=== PATIENT | female | born 1990 | race American Indian/Alaskan Native ===

== ENCOUNTER 2018-06-23 18:49 | Emergency (ER) | payer OTHER, SELFPAY ==
[2018-06-23 18:57] VITALS: BP 118/70; PULSE 95; RESP 16; TEMP 36.7; O2SAT 99
[2018-06-23 19:50] VITALS: BP 118/70; PULSE 99; RESP 18; TEMP 36.8; O2SAT 95
[2018-06-23] MEDS: AMOXICILLIN 250 MG CAPSULE 500 MG PO (19:50)
[2018-06-23 20:01] VITALS: BP 122/76; PULSE 99; RESP 18; TEMP 36.8; O2SAT 95
--- NOTE | 2018-06-24 01:04 | ED_ITS ---
HPI - URI/Sore Throat General Chief Complaint: Upper Respiratory Symptoms Stated Complaint: SORE THROAT FEVER Time Seen by Provider: 06/23/18 19:04 Source: patient and family Mode of arrival: ambulatory Limitations: no limitations History of Present Illness HPI Narrative: 28-year-old female, otherwise healthy, nonsmoker presents with a chief complaint of a sore throat for the past few days. She denies runny nose or cough. She denies any chest pain or shortness of breath. She denies nausea, vomiting or diarrhea. She presents with her young child with similar symptoms. There are multiple other family members who have recently been diagnosed with strep throat. MD Complaint: fever Onset (ago): hour(s) Duration: constant Severity: moderate Relieving factors: nothing Exacerbating factors: nothing Description of mucous: clear Able to tolerate fluids by mouth: Yes Context: sick contacts Associated symptoms: fever Related Data Home Medications Medication Instructions Recorded Confirmed cetirizine 10 mg PO DAILY PRN 06/23/18 06/23/18 Previous Rx's Medication Instructions Recorded amoxicillin 500 mg PO BID 10 Days #20 cap 06/23/18 Allergies Allergy/AdvReac Type Severity Reaction Status Date / Time No Known Drug Allergies Allergy Verified 06/23/18 19:01 Review of Systems Review of Systems All systems reviewed & are unremarkable except as noted in HPI and below Constitutional Denies chills, Denies fever(s), Denies lethargy and Denies weakness Eyes Denies change in vision, Denies eye discharge, Denies irritation and Denies loss of vision ENT Ears, Nose, Mouth, and Throat: Denies change in voice, Denies neck pain and Reports sore throat Cardiovascular Denies chest pain, Denies irregular heart rhythm, Denies lightheadedness, Denies palpitations, Denies dyspnea, Denies dyspnea on exertion and Denies orthopnea Respiratory Denies cough, Denies dyspnea, Denies dyspnea on exertion and Denies wheezing Gastrointestinal Gastrointestinal: Denies abdominal pain, Denies change in bowel habits, Denies diarrhea, Denies nausea and Denies vomiting Genitourinary Denies hematuria, Denies flank pain, Denies urinary incontinence and Denies urinary urgency Musculoskeletal Denies neck pain Integumentary/Breasts Denies pruritus, Denies erythema, Denies rash and Denies wounds Neurologic Denies confusion, Denies loss of vision and Denies weakness Psychiatric Denies anxiety, Denies confusion, Denies depression, Denies homicidal ideation and Denies suicidal ideation Endocrine Denies palpitations Hematologic/Lymphatic Denies easy bruising Allergic/Immunologic Denies wheezing Exam Narrative Exam Narrative: GEN: AOx3 and in mild distress EYES: Pupils are equal, round, and reactive to light and accommodation. Extraoccular muscles are intact bilaterally. There is no subconjunctival hemorrhage or exudate. ENT: mild pharyngeal erythema, no tonsillar swelling or exudate. No anterior lymphadenopathy. CHEST: Lungs are clear to auscultation bilaterally and free of wheezes, rales, or rhonchi. Heart rate is regular rhythm, there are no murmurs, clicks, rubs, or gallops. There is no chest wall tenderness. ABD: Abdomen is soft and nontender. There is no guarding or rebound. Bowel sounds are normal in all 4 quadrants. There is no mass or organomegaly. EXT: Full painless ROM of all extremities with no loss of sensation or strength. SKIN: Warm, pink, and dry. No erythema or rash Initial Vital Signs Initial Vital Signs: Vital Signs Temperature 98.0 F 06/23/18 18:57 Pulse Rate 95 H 06/23/18 18:57 Respiratory Rate 16 06/23/18 18:57 Blood Pressure 118/70 06/23/18 18:57 Pulse Oximetry 99 06/23/18 18:57 Course Orders Ordered: Discontinued Medications Amoxicillin (Trimox) 500 mg PO NOW ONE Stop: 06/23/18 19:38 Last Admin: 06/23/18 19:50 Dose: 500 mg Vital Signs - 8 hr 06/23/18 18:57 06/23/18 19:50 06/23/18 20:01 Temperature 98.0 F 98.2 F 98.2 F Pulse Rate 95 H 99 H 99 H Respiratory Rate 16 18 18 Blood Pressure 118/70 118/70 Blood Pressure [Right Arm] 122/76 Pulse Oximetry 99 95 95 MDM - URI/Sore Throat Lab Data Point of Care Testing Rapid Strep A Positive Discharge Plan Departure Patient Disposition: Home Clinical Impression: Strep pharyngitis Discharge Date/Time: 06/23/18 20:12 Interventions: ED Discharge Assessment Last Done: 06/23/18 20:12 Instructions: DI for Strep Throat Activity Restrictions/Additional Instructions: *You have been diagnosed with [ acute streptococcal pharyngitis ] *What to do: *Take medications as directed *Follow up with your primary care provider in 2-3 days, call for an appointment. Let them know you were seen in the Emergency Department and that we ask that you be seen in follow up *Return to ER if you should have any new, worsening or concerning symptoms , such as [ worsening fever, trouble taking your medicine, or other bothersome symptoms] Prescriptions: New amoxicillin 500 mg capsule 500 mg PO BID 10 Days Qty: 20 RF: 0 No Action cetirizine 10 mg Tablet 10 mg PO DAILY PRN (Reason: Allergic Symptoms) RF: 0 Stand Alone Forms: Work/School Restrictions
== END 2018-06-23 20:12 | disposition home or self-care (01) ==
PROVIDERS: Emergency Provider Emergency Medicine
DX: J02.0 Streptococcal pharyngitis (principal)
CPT/HCPCS: 87880; 99282; 99283

== ENCOUNTER → 2018-07-11 16:13 | Outpatient (CLI) | payer OTHER, SELFPAY | PROVIDERS: Visit Provider Physician Assistant | DX: J02.9 Acute pharyngitis, unspecified (principal) | CPT/HCPCS: 87070; 87077; 87147 ==

== ENCOUNTER 2018-08-15 09:03 | Emergency (ER) | payer OTHER, SELFPAY ==
[2018-08-15 09:06] VITALS: BP 132/90; PULSE 96; RESP 18; O2SAT 100
--- NOTE | 2018-08-15 10:16 | ED_ITS ---
HPI - URI/Sore Throat General Chief Complaint: Upper Respiratory Symptoms Stated Complaint: STREP Time Seen by Provider: 08/15/18 10:05 Source: patient and old records reviewed Mode of arrival: ambulatory Limitations: no limitations History of Present Illness HPI Narrative: Patient is a 28-year-old female who presents with sore throat ongoing for the last 3 days. She had strep once in June and again in July. She feels like this is similar. Her right ear hurt briefly but no longer hurts. She has had low-grade temperature 100?. No cough. Complaint: sore throat Onset (ago): day(s) Duration: constant Related Data Home Medications Medication Instructions Recorded Confirmed cetirizine 10 mg PO DAILY PRN 06/23/18 08/15/18 Allergies Allergy/AdvReac Type Severity Reaction Status Date / Time No Known Drug Allergies Allergy Verified 06/23/18 19:01 Review of Systems Review of Systems ROS Unobtainable: All systems reviewed & are unremarkable except as noted in HPI and below Constitutional Denies chills, Reports fever(s) and Denies malaise ENT Ears, Nose, Mouth, and Throat: Reports as per HPI Cardiovascular Denies chest pain, Denies irregular heart rhythm, Denies lightheadedness, Denies palpitations, Denies dyspnea, Denies dyspnea on exertion and Denies orthopnea Respiratory Denies cough, Denies dyspnea, Denies dyspnea on exertion and Denies wheezing Gastrointestinal Gastrointestinal: Denies abdominal pain, Denies change in bowel habits, Denies diarrhea, Denies nausea and Denies vomiting Genitourinary Denies hematuria, Denies flank pain, Denies urinary incontinence and Denies urinary urgency Musculoskeletal Denies back pain, Denies muscle weakness, Denies numbness and Denies tingling Integumentary/Breasts Denies pruritus, Denies erythema, Denies rash and Denies wounds Neurologic Denies numbness and Denies tingling Endocrine Denies palpitations Allergic/Immunologic Denies wheezing [facility] Medical History Patient denies medical problems (Acute) Social History Smoking Status: Never smoker Exam Initial Vital Signs Initial Vital Signs: Vital Signs Pulse Rate 96 H 08/15/18 09:06 Respiratory Rate 18 08/15/18 09:06 Blood Pressure 132/90 08/15/18 09:06 Pulse Oximetry 100 01/11/19 09:06 GENERAL: Well-appearing, well-nourished and in no acute distress. HEENT: Head atraumatic,EOMI, pupils reactive, neck is supple no meningeal signs PHARYNX: No erythema, no tonsillar exudate, no cervical lymphadenopathy CARDIOVASCULAR: Regular rate and rhythm without murmurs, rubs or gallops. RESPIRATORY: Breath sounds equal bilaterally, no wheezes rales or rhonchi. ABDOMEN: Soft, nontender. Normoactive bowel sounds all 4 quadrants. No guarding or rebound. EXTREMITIES: Normal range of motion, no clubbing or edema. Neurovascularly intact NEUROLOGICAL: Alert and oriented x4.Normal gait and speech. Cranial nerves II through XII grossly intact. SKIN: Warm, dry, no laceration, no petechiae, no rashes or lesions. Course Vital Signs - 8 hr 08/15/18 09:06 Pulse Rate 96 H Respiratory Rate 18 Blood Pressure 132/90 Pulse Oximetry 100 MDM - URI/Sore Throat Lab Data Attestation: I reviewed the patient's lab results. Point of Care Testing Rapid Strep A Negative [facility] Narrative Medical decision making narrative: Patient's strep is negative. Pharynx is nonerythematous no exudate. At this time likely virus. Discharge Plan Departure Patient Disposition: Home Clinical Impression: Pharyngitis Discharge Date/Time: 08/15/18 10:25 Interventions: ED Discharge Assessment Last Done: 08/15/18 10:25 Instructions: DI for Viral Pharyngitis Activity Restrictions/Additional Instructions: *You have been diagnosed with viral pharyngitis *What to do: At this time no antibiotics are required strep test is negative. *Continue to take medications as directed *Follow up with your primary care provider in 2-3 days *Return to ER if you should have difficulty swallowing, increasing pain, change in voice or any new, worsening or concerning symptoms Prescriptions: No Action cetirizine 10 mg Tablet 10 mg PO DAILY PRN (Reason: Allergic Symptoms) RF: 0
== END 2018-08-15 10:25 | disposition home or self-care (01) ==
PROVIDERS: Emergency Provider Emergency Medicine
DX: J02.9 Acute pharyngitis, unspecified (principal)
CPT/HCPCS: 87880; 99282

== ENCOUNTER → 2019-09-11 16:48 | Outpatient (CLI) | payer OTHER, SELFPAY | PROVIDERS: Visit Provider Physician Assistant | DX: J02.9 Acute pharyngitis, unspecified (principal) | CPT/HCPCS: 87070; 87077; 87147 ==

== ENCOUNTER → 2019-09-25 16:08 | Outpatient (CLI) | payer OTHER, SELFPAY | PROVIDERS: Visit Provider Physician Assistant | DX: L08.9 Local infection of the skin and subcutaneous tissue, unspecified (principal); T14.8XXA Other injury of unspecified body region, initial encounter | CPT/HCPCS: 87070; 87075; 87077; 87147; 87186; 87205 ==

== ENCOUNTER → 2021-10-30 17:50 | Outpatient (CLI) | payer OTHER, SELFPAY | PROVIDERS: Visit Provider Student in an Organized Health Care Education/Training Program | DX: J02.9 Acute pharyngitis, unspecified (principal) | CPT/HCPCS: 87070; 87077; 87147 ==

== ENCOUNTER 2025-06-03 01:25 | Emergency (ER) | payer OTHER, SELFPAY ==
[2025-06-03] VITALS (7 sets, daily range): BP systolic 135–150; BP diastolic 60–69; PULSE 85–98; RESP 18; TEMP 36.9; O2SAT 98–100; BMI 32.9
[2025-06-03] MEDS: ONDANSETRON 4 MG/2 ML INJ IV (01:57)
[2025-06-03 02:06] LABS: Culture Indicated Urine Cult Not Indicated
[2025-06-03 02:10] LABS: Add Manual Diff / Slide Review NO; Hematocrit 31.4 % (36-46); Hemoglobin 10.2 g/dL (12.0-16.0); Lymphocytes Absolute Auto 2300 /uL (1100-4500); Mean Corpuscular HGB Conc 32.3 % (30-36); Mean Corpuscular Hemoglobin 21.9 PG (26-34); Mean Corpuscular Volume 67.9 fL (80-100); Platelet Count 354 X10^3/uL (150-400)
[2025-06-03 02:17] LABS: Alanine Aminotransferase 16 IU/L (<35); Albumin 4.1 g/dL (3.5-5.0); Albumin Globulin Ratio 1.3 (1.0-2.8); Alkaline Phosphatase 80 U/L (38-126); Blood Urea Nitrogen 11 mg/dL (7-17); Calcium 8.9 mg/dL (8.4-10.2); Carbon Dioxide 27 mmol/L (22-32); Chloride 107 mmol/L (98-107); Estimated Glomerular Filt Rate > 60 mL/min (>60); Globulin 3.2 g/dL (1.7-4.1); Glucose 94 mg/dL (70-99); HEMOLYSIS < 15 (0-50); Lipase 85 U/L (23-300); Potassium 3.7 mmol/L (3.4-5.1); Sodium 139 mmol/L (137-145); Total Protein 7.3 g/dL (6.3-8.2)
[2025-06-03 02:20] LABS: Anisocytosis 2+
[2025-06-03 02:21] LABS: Hypochromasia 1+; Microcytosis 2+
--- NOTE | 2025-06-03 02:47 | ED.ABDPAIN ---
HPI - Abdominal Pain General Chief Complaint: Abdominal Pain Stated Complaint: LRQ Pain, N, headache Time Seen by Provider: 06/03/25 02:07 Source: patient Mode of arrival: Ambulatory History of Present Illness HPI narrative: 35-year-old female who started with right upper quadrant pain after eating some pizza before arrival. She has not had any abdominal surgeries in the past. She denies any other or GI symptoms. No fever no chills or other generalized symptoms. Related Data Home Medications ?Medication ?Instructions ?Recorded ?Confirmed cetirizine 10 mg tablet 10 mg PO DAILY PRN Allergic 06/23/18 09/25/19 Symptoms Previous Rx's ?Medication ?Instructions ?Recorded mupirocin 2 % topical ointment 1 applic topical TID #30 grams 09/25/19 sulfamethoxazole 800 1 tab PO BID #14 tabs 09/27/19 mg-trimethoprim 160 mg tablet (Bactrim DS) dexamethasone 4 mg tablet 10 mg (2.5 x 4 mg) PO ONCE #2.5 11/02/21 (Decadron) tabs Allergies Allergy/AdvReac Type Severity Reaction Status Date / Time No Known Drug Allergies Allergy Verified 06/03/25 01:49 Review of Systems Review of Systems ROS Unobtainable: All systems reviewed & are unremarkable except as noted in HPI and below Patient History Medical History (Updated 06/03/25 @ 04:09 by Karson Alvarez MD) Wound infection Patient denies medical problems Social History Smoking Status: Never smoker Smoking Status: Never smoker alcohol intake frequency: 0-2 drinks per day Exam Narrative Exam Narrative: General: Patient appears to be in no acute distress, acting appropriately Head: normocephalic, atraumatic, HEENT: Pupils equal round reactive, eyes tracking well, neck supple, no JVD Heart: regular rate and rhythm, no murmurs, rubs, or gallops heard Lungs: clear to auscultation, no adventitious sounds Abdomen: soft , mildly tender to palpation right upper quadrant area, Castillo sign negative, nondistended, positive bowel sounds Neurological: no focal neurological signs, moving all extremities well, alert and oriented x3, Psych: good judgment ,good insight, mood is normal. Initial Vital Signs Initial Vital Signs: Vital Signs Temperature 98.5 F 06/03/25 01:48 Pulse Rate 91 H 06/03/25 01:48 Respiratory Rate 18 06/03/25 01:48 Blood Pressure 150/69 H 06/03/25 01:48 Pulse Oximetry 100 06/03/25 01:48 Oxygen Delivery Method Room Air 06/03/25 01:48 Course Orders Ordered: ED Orders 06/03/25 01:50 Urine Microscopic Stat 06/03/25 01:55 Complete Blood Count AUTO DIFF Stat Comprehensive Metabolic Panel Stat Lipase Stat 06/03/25 02:48 CT abdomen pelvis w con Stat Ondansetron HCl (Ondansetron 4 Mg/2 Ml Inj) 4 mg IV NOW PRN PRN Reason: Nausea And Vomiting Last Admin: 06/03/25 01:57 Dose: 4 mg Documented By: JORGE Ondansetron HCl (Ondansetron 4 Mg Odt) 4 mg PO NOW PRN PRN Reason: Nausea And Vomiting Reevaluation(s) Reevaluation #1: Upon re-evaluation, patient's pain has subsided. Vital Signs Vital signs: Vital Signs - 8 hr 06/03/25 01:48 06/03/25 02:09 06/03/25 02:30 Temperature 98.5 F Pulse Rate 91 H 98 H 86 Respiratory Rate 18 Blood Pressure 150/69 H Pulse Oximetry 100 100 99 Oxygen Delivery Method Room Air 06/03/25 03:00 06/03/25 03:30 06/03/25 04:00 Temperature Pulse Rate 86 86 85 Respiratory Rate Blood Pressure Pulse Oximetry 99 99 98 Oxygen Delivery Method 06/03/25 04:20 06/03/25 04:20 Temperature Pulse Rate 89 Respiratory Rate Blood Pressure 135/60 Pulse Oximetry 98 Oxygen Delivery Method MDM - Abdominal Pain Lab Data 06/03/25 01:55 06/03/25 01:55 Labs: Lab Results 06/03/25 06/03/25 Range/Units 01:50 01:55 WBC 7.9 (4.5-11.0) X10^3/uL RBC 4.63 (4.0-5.2) X10^6/uL Hgb 10.2 L (12.0-16.0) g/dL Hct 31.4 L (36-46) % MCV 67.9 L (80-100) fL MCH 21.9 L (26-34) PG MCHC 32.3 (30-36) % RDW 17.2 H (11.6-14.8) % Plt Count 354 (150-400) X10^3/uL Neut % (Auto) 60.4 (50-75) % Lymph % (Auto) 28.7 (25-40) % [place] % (Auto) 8.1 (3-14) % Eos % (Auto) 1.9 L (2-4) % Baso % (Auto) 0.9 (0-2) % Neut # (Auto) 4700 (1000-0748) /uL Lymph # (Auto) 2300 (7069-9602) /uL [place] # (Auto) 600 (0-900) /uL Eos # (Auto) 200 (0-450) /uL Baso # (Auto) 100 (0-100) /uL Platelet Estimate Adequate on smear RBC Morphology See below Hypochromasia 1+ H Anisocytosis 2+ H Microcytosis 2+ H Sodium 139 (137-145) mmol/L Potassium 3.7 (3.4-5.1) mmol/L Chloride 107 (98-107) mmol/L Carbon Dioxide 27 (22-32) mmol/L BUN 11 (7-17) mg/dL Creatinine 0.69 (0.52-1.04) mg/dL Estimated GFR > 60 (>60) mL/min BUN/Creatinine Ratio 15.9 (6-22) Glucose 94 (70-99) mg/dL Calcium 8.9 (8.4-10.2) mg/dL Total Bilirubin 0.3 (0.2-1.3) mg/dL AST 22 (14-36) IU/L ALT 16 (<35) IU/L Alkaline Phosphatase 80 (38-126) U/L Total Protein 7.3 (6.3-8.2) g/dL Albumin 4.1 (3.5-5.0) g/dL Globulin 3.2 (1.7-4.1) g/dL Albumin/Globulin Ratio 1.3 (1.0-2.8) Lipase 85 (23-300) U/L Urine RBC 0-1/hpf (0-5/HPF) Urine WBC 1-5/hpf (0-5/HPF) Ur Squamous Epith Cells 5-10 /hpf H (0-5/HPF) Amorphous Sediment 2+ Urine Bacteria Few (2-10) H (None) Ur Culture Indicated? Cult not indicated Vol Urine Centrifuged 10ml (spun) Point of care testing: Point of Care Testing Test Results Negative Urine Dip Bedside Urine Glucose Negative Bedside Urine Bilirubin - Negative Bedside Urine Ketone - Negative Urine Specific [place] 1.020 Bedside Urine Occult Blood - Negative Bedside Urine pH 6.0 Bedside Urine Protein - Negative Bedside Urine Urobilinogen - Negative Bedside Urine Nitrite - Negative Bedside Urine Leukocytes +/- [address] scan - abdomen/pelvis: Radiologist's Impression: No acute abnormality identified. Gallbladder is contracted otherwise unremarkable. MDM Narrative Medical decision making narrative: 35-year-old female an acute attack of a right upper quadrant abdominal pain after eating some pizza earlier today. Patient's pain completely subsided here in the ED. imaging did not reveal any wall thickening stone or bile duct obstruction in the gallbladder. Patient advised to avoid fatty foods for now and to follow up with PCP for an ultrasound of the right upper quadrant. Advised to follow up sooner if pain resumes. Discharge Plan Departure Patient Disposition: Home Clinical Impression: Abdominal pain Instructions: DI for Abdominal Pain-Adult Activity Restrictions/Additional Instructions: Try to avoid fatty foods for now. Follow up with PCP to get an ultrasound done of your gallbladder. Follow up sooner if your pain becomes more severe. Prescriptions: No Action mupirocin 2 % ointment 1 applic TOP TID Qty: 30 0RF dexamethasone [Decadron] 4 mg tablet 10 mg PO ONCE Qty: 2.5 0RF sulfamethoxazole-trimethoprim [Bactrim DS] 800-160 mg tablet 1 tab PO BID Qty: 14 0RF cetirizine 10 mg Tablet 10 mg PO DAILY PRN (Reason: Allergic Symptoms) Referrals: Miscellaneous,Doctor, [Primary Care Provider, Medical] Stand Alone Forms: Patient Portal/API
--- NOTE | 2025-06-03 02:48 | DI.CT.S_ITS ---
PROCEDURE: CT ABDOMEN PELVIS W CON INDICATIONS: right upper quadrant pain TECHNIQUE: After the administration of intravenous contrast, axial sections acquired from the lung bases to the pubic symphysis. Coronal and sagittal reformats were performed. For radiation dose reduction, the following was used: automated exposure control, adjustment of mA and/or kV according to patient size. COMPARISON: None. FINDINGS: Image quality: Diagnostic Lower chest: Unremarkable lung bases Mildly patulous esophagus. Normal heart size. Liver: Unremarkable Gallbladder and biliary system: Unremarkable, nondilated Pancreas: No ductal dilation Spleen: Nonenlarged Adrenals: No discrete nodules Kidneys: Suspect small renal cysts are present. Subcentimeter lesions are seen, too small to characterize, usually also cysts. No hydronephrosis. Vessels and lymph nodes: The main portal vein appears patent. No abdominal aortic aneurysm. There are no enlarged lymph nodes by size criteria Bowel and peritoneum: No evidence of small bowel obstruction. No drainable abscess or ascites. Appendix not definitely seen. Body wall: Unremarkable Pelvis: Likely physiologic appearance of the uterus and ovaries. This is not well assessed on CT. Bladder is under distended Bones: No aggressive appearing osseous abnormality IMPRESSION: No acute abdominal pelvic abnormality. No gallbladder or biliary ductal dilation by CT. Other findings above. No significant discrepancy from the preliminary report. Dictated by: Naeem Maurice M.D. on 06/03/2025 at 7:12 Approved by: Naeem Maurice M.D. on 06/03/2025 at 7:18
== END 2025-06-03 04:33 | disposition home or self-care (01) ==
PROVIDERS: Emergency Provider Family Medicine
DX: R10.11 Right upper quadrant pain (principal)
CPT/HCPCS: 36415; 74177; 80053; 81003; 81015; 81025; 83690; 85025; 96374; 99284; J2405; Q9967